=== PATIENT | female | born 1970 | race Caucasian/White ===

== ENCOUNTER 2017-08-15 13:21 | Outpatient (CLI) | payer OTHER | END 2017-08-15 13:22 | disposition home or self-care (01) | LOC: BICMAMMO 13:21 | PROVIDERS: ATTEND Family Medicine | DX: Z12.31 Encounter for screening mammogram for malignant neoplasm of breast (principal) | CPT/HCPCS: 77063; 77067 ==

== ENCOUNTER 2019-06-09 11:14 | Outpatient (CLI) | payer OTHER ==
--- NOTE | 2019-06-09 13:25 | RAD ---
RIGHT ELBOW 4 VIEWS: Date: 06/09/2019 HISTORY: Right elbow pain. FINDINGS: There are no signs of fracture, dislocation, or joint effusion. IMPRESSION: Negative right elbow. POS: [facility]
== END 2019-06-09 11:15 | disposition home or self-care (01) ==
LOC: BICRAD 11:14
PROVIDERS: ATTEND Family Medicine
DX: M25.521 Pain in right elbow (principal)

== ENCOUNTER 2020-02-22 17:00 | Outpatient (CLI) | payer BC | END 2020-02-22 17:01 | disposition home or self-care (01) | LOC: CTENTCT 17:00 | PROVIDERS: ATTEND Otolaryngology Plastic Surgery within the Head & Neck | DX: J32.8 Other chronic sinusitis (principal) | CPT/HCPCS: 70486 ==

== ENCOUNTER 2021-07-27 12:09 | Outpatient (CLI) | payer BC | END 2021-07-27 12:10 | disposition home or self-care (01) | LOC: BICMAMMO 12:09 | PROVIDERS: ATTEND Family Medicine | DX: Z12.31 Encounter for screening mammogram for malignant neoplasm of breast (principal) | CPT/HCPCS: 77063; 77067 ==

== ENCOUNTER 2025-03-25 14:18 | Outpatient (CLI) | payer BC | END 2025-03-25 14:19 | disposition home or self-care (01) | LOC: BICRAD 14:18 | PROVIDERS: ATTEND Family Medicine | DX: M16.0 Bilateral primary osteoarthritis of hip (principal) | CPT/HCPCS: 73522 ==